=== PATIENT | female | born 1960 | race Caucasian/White ===

== ENCOUNTER 2018-03-05 10:45 | Outpatient (RCR) | payer MEDICAID ==
[~2018-03-05 10:45] MED LIST: ? BP MED; AFRIN 15 ML15 ML NS; ALBUTEROL S0.4 MG/ML; ALPRAZOLAM PO; ATORVASTATIN; ATROVENT INHALE14 GM IH; B-12 IM; BIAXIN FILMTAB500 MG PO; BLOOD PRESSURE MED; CEPHALEXIN500 M1 PO; DITROPAN5 MG PO; DRAMAMINE25 MG PO; IPRATROPIUM 2.2.5 ML IH; LIPITOR 10MG10 MG PO; LOPRESSOR 550 MG/TAB PO; MECLIZINE25 MG PO; OMNICEF 300MG300 MG PO; PHENERGAN 25 TA25 MG PO; PHENERGAN W/CO120 ML PO; PREDNISONE20 MG PO; REMERON30 MG PO; TEKTURNA; TOPAMAX25 MG PO; TOPROL XL50 MG PO; VENTOLIN0.09 MG IH; XANAX0.5 MG PO; XOPENEX 1.1.25 MG/3 IH; ZITHROMAX 250M250 MG PO; ZITHROMAX Z PA250 MG PO; ZOFRAN 4MG T4 MG/TAB PO; ZYRTEC10 MG PO; [UNRECOGNIZED DRUG - REMARK] PO
== END 2018-03-28 | disposition home or self-care (01) ==
LOC: MKS.ESL.PT
DX: M75.81 Other shoulder lesions, right shoulder (principal)

== ENCOUNTER 2018-04-24 17:58 | Emergency (ER) | payer MEDICAID ==
[~2018-04-24] VITALS: Ht 170.2 cm; Wt 95.0 kg
[2018-04-24 18:10] VITALS: BP 192/91; PULSE 89; TEMP 97.5
[2018-04-24] MEDS ORDERED: TENORMIN 5050 MG/TAB PO (18:25)
[2018-04-24] MEDS ORDERED: COZAAR 50MG50 MG/TAB PO (18:25)
[2018-04-24] MEDS ORDERED: REVIA 50MG TABL50 MG PO (18:26)
[2018-04-24] MEDS ORDERED: B-12 100 MCG (18:32)
[2018-04-24] MEDS ORDERED: CEPHALEXIN500 M1 PO (18:41)
[2018-04-24] MEDS ORDERED: TORADOL 10MG TA10 MG PO (18:41)
== END 2018-04-24 19:10 | disposition home or self-care (01) ==
LOC: COL.ER 17:58
DX: I10 Essential (primary) hypertension (principal); J45.909 Unspecified asthma, uncomplicated; K04.7 Periapical abscess without sinus; F41.9 Anxiety disorder, unspecified
CPT/HCPCS: J1885

== ENCOUNTER 2018-06-21 13:34 | Emergency (ER) | payer MEDICAID ==
[~2018-06-21] VITALS: Ht 170.2 cm; Wt 95.9 kg
[~2018-06-21 13:34] MED LIST changes: +B-12 100 MCG; +COZAAR 50MG50 MG/TAB PO; +REVIA 50MG TABL50 MG PO; +TENORMIN 5050 MG/TAB PO; +TORADOL 10MG TA10 MG PO
[2018-06-21 13:42] VITALS: TEMP 96.8
[2018-06-21 14:34] LABS: BASO % 0.3 % (0.0-2.0); EOS % 0.4 % (0-4.0); GRAN # 6.7 (1.4-6.5); GRAN % 74.1 % (42.2-75.2); HEMATOCRIT 43.1 % (37.0-47.0); HEMOGLOBIN 13.9 g/dl (12.5-16.0); LYMPH # 1.8 (1.2-3.4); LYMPH % 19.4 % (20.0-51.0); MEAN CELL VOLUME 83 fl (80.0-100.0); MEAN CORPUSCULAR HEMOGLOBIN 27 pg (27.0-31.0); MEAN CORPUSCULAR HGB CONC 32 g/dl (33.0-37.0); MEAN PLATELET VOLUME 9.2 fl (7.4-10.4); MONO # 0.5 (0.1-0.6); PLATELET COUNT 282 K/mm3 (130-400); RED BLOOD COUNT 5.18 M/mm3 (4.10-5.30); REDCELL DISTRIBUTION WIDTH-CV 14.3 % (11.5-14.5)
[2018-06-21 15:43] LABS: ALANINE AMINOTRANSFERASE 28 U/L (9-52); ALBUMIN 4.4 gm/dL (3.5-5.0); ALKALINE PHOSPHATASE 80 U/L (50-136); ANION GAP 6 mmol/L (7-16); AST,SGOT 19 U/L (15-37); BILIRUBIN,TOTAL 0.3 mg/dL (0.0-1.0); BLOOD UREA NITROGEN 16 mg/dL (7-17); CALCIUM 9.8 mg/dL (8.4-10.2); CARBON DIOXIDE 28 mmol/L (22-30); CHLORIDE 108 mmol/L (98-107); CREATININE, serum 1.07 mg/dL (0.52-1.25); GLUCOSE 103 mg/dL (74-106); POTASSIUM 4.1 mmol/L (3.4-5.0); SODIUM 142 mmol/L (137-145); TOTAL PROTEIN 7.5 gm/dL (6.4-8.2)
[2018-06-21 15:54] LABS: TROPONIN-I < 0.012 ng/mL (0.000-0.034)
[2018-06-21 16:20] VITALS: BP 142/84; PULSE 68
== END 2018-06-21 16:45 | disposition home or self-care (01) ==
LOC: COL.ER 13:34
PROVIDERS: Emergency Medicine
DX: I10 Essential (primary) hypertension (principal); R42 Dizziness and giddiness; F41.9 Anxiety disorder, unspecified; Z87.442 Personal history of urinary calculi; Z98.890 Other specified postprocedural states
CPT/HCPCS: J7030

== ENCOUNTER 2018-09-05 18:18 | Emergency (ER) | payer MEDICAID | END 2018-09-05 20:52 | disposition home or self-care (01) | LOC: COL.ER 18:18 | DX: E86.0 Dehydration (principal); R19.7 Diarrhea, unspecified; I10 Essential (primary) hypertension; Z87.442 Personal history of urinary calculi; Z90.710 Acquired absence of both cervix and uterus ==

== ENCOUNTER 2018-10-15 10:45 | Outpatient (RCR) | payer MEDICAID ==
[~2018-10-15 10:45] MED LIST changes: +ASPIRIN 81M81 MG/TA2 PO; +HCTZ12.5TAB PO
[2018-11-03] MEDS ORDERED: ZITHROMAX 250M250 MG PO (20:53)
== END 2018-11-28 | disposition home or self-care (01) ==
LOC: MKS.ESL.PT
DX: Z47.89 Encounter for other orthopedic aftercare (principal)

== ENCOUNTER 2018-11-03 18:00 | Emergency (ER) | payer MEDICAID ==
[~2018-11-03] VITALS: Ht 170.2 cm; Wt 95.5 kg
[2018-11-03 18:03] VITALS: TEMP 98.3
[2018-11-03 19:29] LABS: BASO % 0.4 % (0.0-2.0); EOS % 0.4 % (0-4.0); GRAN # 7.4 (1.4-6.5); GRAN % 72.5 % (42.2-75.2); HEMATOCRIT 42.1 % (37.0-47.0); HEMOGLOBIN 13.8 g/dl (12.5-16.0); LYMPH # 2.1 (1.2-3.4); LYMPH % 20.7 % (20.0-51.0); MEAN CELL VOLUME 85 fl (80.0-100.0); MEAN CORPUSCULAR HEMOGLOBIN 28 pg (27.0-31.0); MEAN CORPUSCULAR HGB CONC 33 g/dl (33.0-37.0); MEAN PLATELET VOLUME 8.7 fl (7.4-10.4); MONO # 0.6 (0.1-0.6); MONO % 5.6 % (1.7-9.3); PLATELET COUNT 330 K/mm3 (130-400); RED BLOOD COUNT 4.97 M/mm3 (4.10-5.30); REDCELL DISTRIBUTION WIDTH-CV 13.4 % (11.5-14.5)
[2018-11-03 19:41] LABS: ALANINE AMINOTRANSFERASE 8 U/L (9-52); ALBUMIN 4.4 gm/dL (3.5-5.0); ALKALINE PHOSPHATASE 89 U/L (50-136); ANION GAP 8 mmol/L (7-16); AST,SGOT 20 U/L (15-37); BILIRUBIN,TOTAL 0.3 mg/dL (0.0-1.0); BLOOD UREA NITROGEN 20 mg/dL (7-17); C-REACTIVE PROTEIN 0.7 mg/dL (0.0-0.9); CALCIUM 9.9 mg/dL (8.4-10.2); CARBON DIOXIDE 23 mmol/L (22-30); CHLORIDE 108 mmol/L (98-107); CREATININE, serum 1.13 (0.52-1.25); GLUCOSE 105 mg/dL (74-106); POTASSIUM 3.8 mmol/L (3.4-5.0); SODIUM 140 mmol/L (137-145); TOTAL PROTEIN 7.6 gm/dL (6.4-8.2)
[2018-11-03 19:50] LABS: TROPONIN-I < 0.012 ng/mL (0.000-0.035)
[2018-11-03 20:26] LABS: COLLECTION METHOD CLEAN CATCH
[2018-11-03 20:32] LABS: MUCOUS Present /lpf; PH 6 (5-8); SQUAMOUS EPITHELIAL 0-2 /hpf; URINE APPEARANCE Hazy; URINE BACTERIA Rare /hpf; URINE BILIRUBIN Negative (NEGATIVE); URINE BLOOD 1+ (NEGATIVE); URINE COLOR Straw; URINE GLUCOSE Negative (NEGATIVE); URINE KETONE Negative (NEGATIVE); URINE LEUKOCYTE ESTERASE Negative (NEGATIVE); URINE NITRATE Negative (NEGATIVE); URINE PROTEIN(semi-quant) Negative (NEGATIVE); URINE RBC 0-2 /hpf; URINE UROBILINOGEN Negative (NEGATIVE)
[2018-11-03] MEDS ORDERED: ZITHROMAX 250M250 MG PO (20:53)
[2018-11-03 21:00] VITALS: BP 163/75; PULSE 70
== END 2018-11-03 21:20 | disposition home or self-care (01) ==
LOC: COL.ER 18:00
PROVIDERS: Emergency Medicine
DX: I10 Essential (primary) hypertension (principal); J32.9 Chronic sinusitis, unspecified; Z87.442 Personal history of urinary calculi; F41.9 Anxiety disorder, unspecified
CPT/HCPCS: J7030

== ENCOUNTER → 2019-08-10 | Outpatient (CLI) | payer MEDICAID | LOC: COL.RAD 10:21 | DX: K57.32 Diverticulitis of large intestine without perforation or abscess without bleeding (principal); Z90.710 Acquired absence of both cervix and uterus | CPT/HCPCS: Q9967 ==

== ENCOUNTER 2020-03-07 10:45 | Outpatient (RCR) | payer MEDICAID | END 2020-05-17 | disposition home or self-care (01) | LOC: MKS.ESL.PT | DX: M25.512 Pain in left shoulder (principal); M23.52 Chronic instability of knee, left knee; Z98.890 Other specified postprocedural states ==

== ENCOUNTER 2020-06-07 10:04 | Emergency (ER) | payer MEDICAID ==
[~2020-06-07] VITALS: Ht 170.2 cm; Wt 99.1 kg
[2020-06-07 10:07] VITALS: TEMP 98.4
[2020-06-07 10:43] LABS: BASO % 0.5 % (0.0-2.0); EOS # 0.1 (0.0-0.7); EOS % 1.3 % (0-4.0); GRAN # 4.6 (1.4-6.5); GRAN % 59.5 % (42.2-75.2); HEMATOCRIT 38.4 % (37.0-47.0); HEMOGLOBIN 12.4 g/dl (12.5-16.0); LYMPH # 2.4 (1.2-3.4); LYMPH % 30.8 % (20.0-51.0); MEAN CELL VOLUME 85 fl (80.0-100.0); MEAN CORPUSCULAR HEMOGLOBIN 28 pg (27.0-31.0); MEAN CORPUSCULAR HGB CONC 32 g/dl (33.0-37.0); MEAN PLATELET VOLUME 8.6 fl (7.4-10.4); MONO # 0.6 (0.1-0.6); MONO % 7.4 % (1.7-9.3); PLATELET COUNT 362 K/mm3 (130-400); REDCELL DISTRIBUTION WIDTH-CV 13.5 % (11.5-14.5)
[2020-06-07 10:57] LABS: ALANINE AMINOTRANSFERASE 21 U/L (4-34); ALBUMIN 4.7 gm/dL (3.5-5.0); ALKALINE PHOSPHATASE 77 U/L (50-136); ANION GAP 9 mmol/L (7-16); AST,SGOT 29 U/L (15-37); BILIRUBIN,TOTAL 0.5 mg/dL (0.0-1.0); BLOOD UREA NITROGEN 21 mg/dL (7-17); C-REACTIVE PROTEIN 0.6 mg/dL (0.0-0.9); CALCIUM 9.6 mg/dL (8.4-10.2); CARBON DIOXIDE 27 mmol/L (22-30); CHLORIDE 103 mmol/L (98-107); CREATININE, serum 1.03 (0.52-1.25); GLUCOSE 107 mg/dL (74-106); POTASSIUM 3.7 mmol/L (3.4-5.0); SODIUM 138 mmol/L (137-145); TOTAL PROTEIN 7.5 gm/dL (6.4-8.2)
[2020-06-07 11:06] LABS: TROPONIN-I < 0.012 ng/mL (0.000-0.035)
[2020-06-07 12:46] VITALS: BP 169/88; PULSE 67
== END 2020-06-07 12:47 | disposition home or self-care (01) ==
LOC: COL.ER 10:04
PROVIDERS: Nurse Practitioner
DX: R00.2 Palpitations (principal); Z88.8 Allergy status to other drugs, medicaments and biological substances; Z90.710 Acquired absence of both cervix and uterus; Z88.6 Allergy status to analgesic agent; Z79.82 Long term (current) use of aspirin

== ENCOUNTER 2020-08-01 16:43 | Emergency (ER) | payer MEDICAID ==
[~2020-08-01] VITALS: Ht 170.2 cm; Wt 90.9 kg
[2020-08-01 16:51] VITALS: TEMP 97.8
[2020-08-01 17:55] LABS: BASO % 0.3 % (0.0-2.0); EOS # 0.1 (0.0-0.7); EOS % 0.7 % (0-4.0); GRAN # 4.6 (1.4-6.5); GRAN % 65.1 % (42.2-75.2); HEMATOCRIT 39.1 % (37.0-47.0); HEMOGLOBIN 13.1 g/dl (12.5-16.0); LYMPH # 1.8 (1.2-3.4); LYMPH % 25.9 % (20.0-51.0); MEAN CELL VOLUME 82 fl (80.0-100.0); MEAN CORPUSCULAR HEMOGLOBIN 28 pg (27.0-31.0); MEAN CORPUSCULAR HGB CONC 34 g/dl (33.0-37.0); MEAN PLATELET VOLUME 8.8 fl (7.4-10.4); MONO # 0.6 (0.1-0.6); MONO % 7.7 % (1.7-9.3); PLATELET COUNT 318 K/mm3 (130-400); RED BLOOD COUNT 4.77 M/mm3 (4.10-5.30); REDCELL DISTRIBUTION WIDTH-CV 13.2 % (11.5-14.5)
[2020-08-01 18:03] LABS: ALANINE AMINOTRANSFERASE 24 U/L (4-34); ALBUMIN 4.9 gm/dL (3.5-5.0); ALKALINE PHOSPHATASE 75 U/L (50-136); ANION GAP 10 mmol/L (7-16); AST,SGOT 23 U/L (15-37); BILIRUBIN,TOTAL 0.4 mg/dL (0.0-1.0); BLOOD UREA NITROGEN 28 mg/dL (7-17); C-REACTIVE PROTEIN 0.9 mg/dL (0.0-0.9); CARBON DIOXIDE 28 mmol/L (22-30); CHLORIDE 100 mmol/L (98-107); CREATININE, serum 1.24 (0.52-1.25); GLUCOSE 114 mg/dL (74-106); POTASSIUM 3.6 mmol/L (3.4-5.0); SODIUM 138 mmol/L (137-145); TOTAL PROTEIN 7.9 gm/dL (6.4-8.2)
[2020-08-01 18:13] LABS: TROPONIN-I < 0.012 ng/mL (0.000-0.035)
[2020-08-01 18:49] LABS: COLLECTION METHOD CLEAN CATCH
[2020-08-01 18:58] LABS: PH 7 (5-8); SQUAMOUS EPITHELIAL 0-2 /hpf; URINE APPEARANCE Clear; URINE BACTERIA Rare /hpf; URINE BILIRUBIN Negative (NEGATIVE); URINE BLOOD Negative (NEGATIVE); URINE COLOR Straw; URINE GLUCOSE Negative (NEGATIVE); URINE KETONE Negative (NEGATIVE); URINE LEUKOCYTE ESTERASE Negative (NEGATIVE); URINE NITRATE Negative (NEGATIVE); URINE PROTEIN(semi-quant) Negative (NEGATIVE); URINE RBC 0-2 /hpf; URINE UROBILINOGEN Negative (NEGATIVE)
[2020-08-01 20:10] VITALS: BP 133/86; PULSE 79
== END 2020-08-01 20:10 | disposition home or self-care (01) ==
LOC: COL.ER 16:43
PROVIDERS: Nurse Practitioner
DX: F41.9 Anxiety disorder, unspecified (principal); R53.83 Other fatigue; R42 Dizziness and giddiness; R11.0 Nausea; R00.2 Palpitations; T43.025A Adverse effect of tetracyclic antidepressants, initial encounter; Z88.8 Allergy status to other drugs, medicaments and biological substances; Z88.6 Allergy status to analgesic agent; Z88.2 Allergy status to sulfonamides; Z79.82 Long term (current) use of aspirin
CPT/HCPCS: J7030

== ENCOUNTER → 2021-03-20 | Outpatient (CLI) | payer MEDICAID | LOC: COL.RAD 13:43 | DX: N17.9 Acute kidney failure, unspecified (principal); Z90.710 Acquired absence of both cervix and uterus ==

== ENCOUNTER 2022-11-06 16:05 | Outpatient (RCR) | payer MEDICAID | END 2022-11-06 16:06 | LOC: MKS.ESL.PT 16:05 | DX: M54.50 Low back pain, unspecified (principal) ==

== ENCOUNTER 2023-03-09 15:01 | Outpatient (RCR) | payer MEDICAID | END 2023-03-12 | disposition home or self-care (01) | LOC: MKS.ESL.PT | DX: M17.12 Unilateral primary osteoarthritis, left knee (principal) ==

== ENCOUNTER 2023-04-06 15:15 | Outpatient (RCR) | payer MEDICAID | END 2023-04-11 | disposition home or self-care (01) | LOC: MKS.ESL.PT | DX: M17.12 Unilateral primary osteoarthritis, left knee (principal) ==

== ENCOUNTER 2023-06-03 11:15 | Outpatient (RCR) | payer MEDICAID | END 2023-06-11 | disposition home or self-care (01) | LOC: MKS.ESL.PT | DX: M17.12 Unilateral primary osteoarthritis, left knee (principal); Z96.652 Presence of left artificial knee joint ==

== ENCOUNTER 2023-07-08 10:30 | Outpatient (RCR) | payer MEDICAID | END 2023-07-12 | disposition home or self-care (01) | LOC: MKS.ESL.PT | DX: M17.12 Unilateral primary osteoarthritis, left knee (principal); Z96.652 Presence of left artificial knee joint ==

== ENCOUNTER → 2023-08-12 | Outpatient (RCR) | payer MEDICAID | END | disposition home or self-care (01) | LOC: MKS.ESL.PT | DX: M17.12 Unilateral primary osteoarthritis, left knee (principal); Z96.652 Presence of left artificial knee joint ==

== ENCOUNTER 2023-10-05 11:15 | Outpatient (RCR) | payer MEDICAID | END 2023-10-11 | disposition home or self-care (01) | LOC: MKS.ESL.PT | DX: M17.12 Unilateral primary osteoarthritis, left knee (principal); Z96.652 Presence of left artificial knee joint ==

== ENCOUNTER 2024-01-04 10:30 | Outpatient (RCR) | payer MEDICAID | END 2024-01-10 | LOC: MKS.ESL.PT | DX: Z96.652 Presence of left artificial knee joint (principal) ==